=== PATIENT | female | born 1940 | race Caucasian/White ===

== ENCOUNTER 2016-09-13 10:06 | Inpatient (IN) | payer MEDICARE, OTHER ==
[2016-09-13 12:47] LABS: BILIRUBIN NEGATIVE (NEGATIVE); BLOOD NEGATIVE Ery/uL (NEGATIVE); CLARITY CLEAR (CLEAR); COLOR YELLOW (YELLOW); GLUCOSE (U) NORMAL (NORMAL); KETONE (U) NEGATIVE (NEGATIVE); LEUKOCYTES 1+ Leu/uL (NEGATIVE); NITRITE POSITIVE (NEGATIVE); PROTEIN NEGATIVE (NEGATIVE)
[2016-09-13 12:52] LABS: BACTERIA 4+; URINARY RBC RARE
[2016-09-13 13:20] LABS: BASOPHIL 0.4 % (0-2); EOSINOPHIL 2.4 % (0-7); HCT 30.4 % (37.0-47.0); HGB 8.6 g/dl (12.5-16.0); LYMPHOCYTE 16.6 % (15-48); MCH 21.2 pg (25.0-31.0); MCHC 28.3 g/dL (32.0-36.0); MCV 74.9 fL (78.0-100.0); MONOCYTE 12.4 % (0-12); MPV 11.5 fL (6.0-9.5); NEUTROPHIL 68.2 % (41-80); PLT 110 K/uL (150-400); RBC 4.06 M/uL (4.20-5.40); RDW 16.6 % (11.5-14.0)
[2016-09-13 13:41] LABS: ALBUMIN 3.8 g/dL (3.4-4.8); BILIRUBIN - TOTAL 0.5 mg/dL (0.1-1.0); CREATININE 0.7 mg/dL (0.5-1.0); POTASSIUM 3.7 mmol/L (3.5-5.1); TOTAL PROTEIN 5.8 g/dL (6.4-8.3)
[2016-09-13 13:59] LABS: INR 1.24 (0.9-1.2); PROTHROMBIN TIME 15.2 SECONDS (11.7-14.0)
[2016-09-13 17:36] LABS: INR 1.22 (0.9-1.2)
[2016-09-13 17:44] LABS: IRON 20 ug/dL (44-196); IRON % SATURATION 6 %SAT (20-50); TIBC (TOTAL IRON + UIBC) 350 U/L (228-428); UIBC 330 ug/dL (112-346)
[2016-09-13 18:00] LABS: FOLIC ACID (SERUM) 11.4 ng/mL (5.6-45.8)
[2016-09-14 05:21] LABS: HCT 28.5 % (37.0-47.0); HGB 7.9 g/dl (12.5-16.0); MCH 20.9 pg (25.0-31.0); MCHC 27.7 g/dL (32.0-36.0); MCV 75.4 fL (78.0-100.0); PLT 94 K/uL (150-400); RBC 3.78 M/uL (4.20-5.40); RDW 16.9 % (11.5-14.0); WBC 4.9 K/uL (4.0-10.5)
[2016-09-14 05:30] LABS: INR 1.26 (0.9-1.2); PROTHROMBIN TIME 15.4 SECONDS (11.7-14.0)
[2016-09-14 05:33] LABS: CREATININE 0.8 mg/dL (0.5-1.0); POTASSIUM 3.8 mmol/L (3.5-5.1)
[2016-09-14 09:10] LABS: BASOPHIL NO PRINT 0.4 % (0-2); EOSINOPHIL NO PRINT 5.3 % (0-7); HCT 28.4 % (37.0-47.0); HGB 7.9 g/dL (12.5-16.0); LYMPHOCYTE NO PRINT 19.6 % (15-48); MCHC NO PRINT 27.8 g/dL (32.0-36.0); MCV NO PRINT 75.3 fL (78.0-100.0); MONOCYTE NO PRINT 14.5 % (0-12); NEUTROPHIL NO PRINT 60.2 % (41-80); PLT NO PRINT 91 K/uL (150-400); RBC NO PRINT 3.77 M/uL (4.20-5.40); RDW NO PRINT 16.8 % (11.5-14.0); WBC NO PRINT 4.5 K/uL (4.0-10.5)
[2016-09-15 04:32] LABS: HCT 29.9 % (37.0-47.0); HGB 8.5 g/dl (12.5-16.0); MCH 21.6 pg (25.0-31.0); MCHC 28.4 g/dL (32.0-36.0); MCV 76.1 fL (78.0-100.0); MPV 11.7 fL (6.0-9.5); RBC 3.93 M/uL (4.20-5.40); RDW 16.7 % (11.5-14.0); WBC 4.2 K/uL (4.0-10.5)
[2016-09-15 04:47] LABS: CREATININE 0.8 mg/dL (0.5-1.0)
[2016-09-16 05:07] LABS: CREATININE 0.8 mg/dL (0.5-1.0); POTASSIUM 3.9 mmol/L (3.5-5.1)
[2016-09-16 05:38] LABS: HCT 26.4 % (37.0-47.0); HGB 7.5 g/dl (12.5-16.0); MCH 21.6 pg (25.0-31.0); MCHC 28.4 g/dL (32.0-36.0); MCV 75.9 fL (78.0-100.0); RBC 3.48 M/uL (4.20-5.40); RDW 17.1 % (11.5-14.0); WBC 3.8 K/uL (4.0-10.5)
[2016-09-16 05:39] LABS: PLT 65 K/Ul (150-400)
[2016-09-17 05:03] LABS: HCT 30.5 % (37.0-47.0); HGB 8.6 g/dl (12.5-16.0); MCH 21.9 pg (25.0-31.0); MCHC 28.2 g/dL (32.0-36.0); MCV 77.8 fL (78.0-100.0); MPV 11.2 fL (6.0-9.5); RBC 3.92 M/uL (4.20-5.40); RDW 18.1 % (11.5-14.0); WBC 4.2 K/uL (4.0-10.5)
[2016-09-17 05:14] LABS: CREATININE 0.8 mg/dL (0.5-1.0); POTASSIUM 4.1 mmol/L (3.5-5.1)
[2016-10-01] MEDS ORDERED: DUONEB 2.5-0.5M1 AMP NEB (11:57)
[2016-10-01] MEDS ORDERED: FLORANEX TABLE1 EACH PO (11:57)
[2016-10-01] MEDS ORDERED: ASPIRIN EC81 MG PO (11:58)
[2016-10-01] MEDS ORDERED: VITAMIN D1000 UNI1 PO (11:58)
[2016-10-01] MEDS ORDERED: PULMICORT0.5 MG/2 M NEB (11:58)
[2016-10-01] MEDS ORDERED: FOSAMAX70 MG PO (11:58)
[2016-10-01] MEDS ORDERED: PREMARIN V45 GM/TUBE PV (11:59)
[2016-10-01] MEDS ORDERED: COLACE100 M1 PO (12:00)
[2016-10-01] MEDS ORDERED: FERROUS GLUCON324 M1 PO (12:00)
[2016-10-01] MEDS ORDERED: PERFOROMIS20 MCG/2 M INH (12:00)
[2016-10-01] MEDS ORDERED: GLUCOTROL XL2.5 MG PO (12:01)
[2016-10-01] MEDS ORDERED: NEURONTIN400 MG PO (12:01)
[2016-10-01] MEDS ORDERED: HYDROCODONE-APA1 TAB PO (12:01)
[2016-10-01] MEDS ORDERED: LASIX40 MG PO (12:01)
[2016-10-01] MEDS ORDERED: SYNTHROID150 MC1 PO (12:02)
[2016-10-01] MEDS ORDERED: PREVACID30 M1 PO (12:02)
[2016-10-01] MEDS ORDERED: SINGULAIR10 MG PO (12:02)
[2016-10-01] MEDS ORDERED: NORFLEX100 MG PO (12:02)
[2016-10-01] MEDS ORDERED: K-DUR20 MEQ PO (12:03)
[2016-10-01] MEDS ORDERED: ZANAFLEX4 M1 PO (12:03)
[2016-10-01] MEDS ORDERED: OMNIPRED5 ML OS (12:03)
[2016-10-01] MEDS ORDERED: CARAFATE1 GM PO (12:04)
[2016-10-01] MEDS ORDERED: LAXATIVE5 M1 PO (12:04)
[2016-10-01] MEDS ORDERED: CARDIZEM30 M1 PO (12:05)
[2016-10-01] MEDS ORDERED: ACETAMINOPHEN325 MG PO (12:05)
[2016-10-01] MEDS ORDERED: MUCINEX 600MG600 MG PO (12:06)
== END 2016-09-17 16:52 | DRG 536 ==
LOC: FER 10:06 → FMS 12:15
PROVIDERS: Allergy & Immunology; Emergency Medicine; Internal Medicine; ADMIT Internal Medicine
PROC: 30233N1 Transfusion of Nonautologous Red Blood Cells into Peripheral Vein, Percutaneous Approach (ICD-10-PCS; principal; 2016-09-14)
DX: S72.111A Displaced fracture of greater trochanter of right femur, initial encounter for closed fracture (principal); R18.8 Other ascites; I50.22 Chronic systolic (congestive) heart failure; J44.1 Chronic obstructive pulmonary disease with (acute) exacerbation; D69.6 Thrombocytopenia, unspecified; N39.0 Urinary tract infection, site not specified; E66.01 Morbid (severe) obesity due to excess calories; E11.9 Type 2 diabetes mellitus without complications; W01.0XXA Fall on same level from slipping, tripping and stumbling without subsequent striking against object, initial encounter; Y92.009 Unspecified place in unspecified non-institutional (private) residence as the place of occurrence of the external cause; I10 Essential (primary) hypertension; E78.5 Hyperlipidemia, unspecified; G89.29 Other chronic pain; D50.9 Iron deficiency anemia, unspecified; Z90.710 Acquired absence of both cervix and uterus; M85.80 Other specified disorders of bone density and structure, unspecified site; Z79.82 Long term (current) use of aspirin; Z88.2 Allergy status to sulfonamides; Z88.1 Allergy status to other antibiotic agents; Z88.5 Allergy status to narcotic agent; I48.91 Unspecified atrial fibrillation; K74.60 Unspecified cirrhosis of liver; M84.48XD Pathological fracture, other site, subsequent encounter for fracture with routine healing
CPT/HCPCS: 36415; 36430; 70450; 71010; 71250; 72100; 73502; 80048; 80053; 81001; 82607; 82728; 82746; 82962; 83540; 83550; 85014; 85018; 85025; 85610; 86850; 86900; 86901; 86922; 87040; 87076; 87088; 87186; 93005; 97110; 97116; 97163; 97166; 97530; 97530-GP; 97535; J0456; J1756; J1940; J1956; J2405; P9016